=== PATIENT | male | born 1965 | race Caucasian/White ===

== ENCOUNTER 2019-03-25 | Emergency (ER) | payer OTHER | END 2019-03-25 13:28 | disposition home or self-care (01) | DRG 914 | PROC: 0HQGXZZ Repair Left Hand Skin, External Approach (ICD-10-PCS; principal; 2019-03-25) | DX: S67.22XA Crushing injury of left hand, initial encounter (principal); S61.412A Laceration without foreign body of left hand, initial encounter; I10 Essential (primary) hypertension; W23.0XXA Caught, crushed, jammed, or pinched between moving objects, initial encounter ==

== ENCOUNTER 2022-06-21 10:25 | Emergency (ER) | payer MEDICARE ==
[2022-06-21] VITALS (14 sets, daily range): BP systolic 111–169; BP diastolic 60–124
[~2022-06-21] VITALS: Ht 162.6 cm; Wt 100.0 kg
[2022-06-21 11:09] LABS: BASO% 0.3 % (0-3); HEMATOCRIT 39.2 % (39.0-50.0); HEMOGLOBIN 12.3 g/dl (14.0-18.0); IMMATURE GRANULOCYTES 0.2 % (0.0-5.0); LYMPH% 15.2 % (15-41); MEAN CELL VOLUME 82.4 fL CALC (80.0-100.0); MEAN CORPUSCULAR HGB 25.8 pG CALC (26.0-32.0); MEAN CORPUSCULAR HGB CONC 31.4 g/dL CAL (32.0-36.0); MONO% 8.4 % (2-13); NEUT# 6.38 thou/uL (1.82-7.42); NEUT% 71.9 % (42-76); RED BLOOD COUNT 4.76 mill/uL (4.70-6.10); RED CELL DISTRI WIDTH 15.6 % (11.5-15.5)
[2022-06-21 11:34] LABS: ALBUMIN 4.4 g/dL (3.2-5.0); ALKALINE PHOSPHATASE 98 u/l (38-126); ANION GAP 17 (6-22 (CALC)); BILIRUBIN, TOTAL 0.2 mg/dL (0.2-1.3); BUN 17 mg/dL (9-20); BUN/CREATININE RATIO 13 (12-20 (CALC)); CARBON DIOXIDE 20 mmol/l (22-30); CHLORIDE 107 mmol/l (95-108); CREATININE 1.3 mg/dL (0.7-1.3); GFR FOR AFR.AMER. > 60 ML/MIN (>=60 (CALC)); GFR OTHER RACES 57 ML/MIN (>=60 (CALC)); POTASSIUM 4.1 mmol/l (3.5-5.1); SGOT/AST 42 u/l (17-59); SODIUM 140 mmol/l (137-146); TOTAL PROTEIN 7.3 g/dL (6.3-8.2)
[2022-06-21 13:42] LABS: ACT PARTIAL THROMBO TIME 25.6 SECONDS (20.0-32.5); PROTHROMBIN TIME 10.4 SECONDS (9.0-12.5)
== END 2022-06-21 14:35 | disposition short-term general hospital (02) ==
LOC: ED 10:25
PROVIDERS: Family Medicine
PROC: 02HV33Z Insertion of Infusion Device into Superior Vena Cava, Percutaneous Approach (ICD-10-PCS; principal; 2022-06-21)
DX: I21.4 Non-ST elevation (NSTEMI) myocardial infarction (principal); I33.0 Acute and subacute infective endocarditis; I10 Essential (primary) hypertension; E78.00 Pure hypercholesterolemia, unspecified; Z95.1 Presence of aortocoronary bypass graft; Z95.0 Presence of cardiac pacemaker
CPT/HCPCS: J1644; J1650; J2997

== ENCOUNTER 2023-04-15 08:46 | Emergency (ER) | payer MEDICARE ==
[~2023-04-15] VITALS: Ht 162.6 cm; Wt 79.3 kg
[2023-04-15] VITALS (17 sets, daily range): BP systolic 99–130; BP diastolic 59–85
[~2023-04-15 08:46] MED LIST: ALDACTONE25 MG PO; BAYER ASPIRIN E81 MG PO; ELIQUIS5 MG PO; ENTRESTO 49-511 TAB PO; FARXIGA10 MG PO; ISOSORB MONO30 MG PO; LAMICTAL200 M1 PO; LASIX 40 MG TAB40 MG PO; LIPITOR80 M1 PO; PROTONIX40 M2 PO; TRAZODONE HYDR150 MG PO; ZOLOFT50 MG PO
[2023-04-15 09:14] LABS: BASO% 0.4 % (0-3); EOS% 1.5 % (0-8); HEMATOCRIT 34.4 % (39.0-50.0); HEMOGLOBIN 10.7 g/dl (14.0-18.0); IMMATURE GRANULOCYTES 0.8 % (0.0-5.0); LYMPH% 8.6 % (15-41); MEAN CORPUSCULAR HGB 28.3 pG CALC (26.0-32.0); MEAN CORPUSCULAR HGB CONC 31.1 g/dL CAL (32.0-36.0); MONO% 11.1 % (2-13); NEUT# 3.7 thou/uL (1.82-7.42); NEUT% 77.6 % (42-76); RED BLOOD COUNT 3.78 mill/uL (4.70-6.10); RED CELL DISTRI WIDTH 18.8 % (11.5-15.5)
[2023-04-15 09:29] LABS: CREATININE 1.7 mg/dL (0.7-1.3); POTASSIUM 4.2 mmol/l (3.5-5.1); TOTAL PROTEIN 6.6 g/dL (6.3-8.2)
[2023-04-15 09:53] LABS: ALBUMIN 3.7 g/dL (3.2-5.0); BILIRUBIN, TOTAL 0.7 mg/dL (0.2-1.3)
[2023-04-15 10:34] LABS: ACT PARTIAL THROMBO TIME 30.3 SECONDS (20.0-32.5)
[2023-04-15 10:39] LABS: INTERNATIONAL NORMALIZED RATIO 1.3 RATIO (0.7-1.3)
== END 2023-04-15 11:40 | disposition short-term general hospital (02) ==
LOC: ED 08:46
PROVIDERS: Family Medicine
DX: I21.4 Non-ST elevation (NSTEMI) myocardial infarction (principal); I10 Essential (primary) hypertension; Z95.1 Presence of aortocoronary bypass graft; Z95.810 Presence of automatic (implantable) cardiac defibrillator; Z95.2 Presence of prosthetic heart valve; Z79.01 Long term (current) use of anticoagulants
CPT/HCPCS: J1644

== ENCOUNTER 2023-05-10 12:56 | Emergency (ER) | payer MEDICARE ==
[2023-05-10] VITALS (13 sets, daily range): BP systolic 97–135; BP diastolic 50–82
[~2023-05-10] VITALS: Ht 162.6 cm; Wt 77.7 kg
[~2023-05-10 12:56] MED LIST changes: +diazePAM 10 MG/2 ML VIAL IV ONE
[2023-05-10] MEDS ORDERED: diazePAM 10 MG/2 ML VIAL IV ONE (13:10)
[2023-05-10 13:21] LABS: BASO% 0.2 % (0-3); EOS% 0.6 % (0-8); HEMATOCRIT 33.3 % (39.0-50.0); HEMOGLOBIN 10.6 g/dl (14.0-18.0); IMMATURE GRANULOCYTES 1.3 % (0.0-5.0); LYMPH% 14.3 % (15-41); MEAN CELL VOLUME 87.4 fL CALC (80.0-100.0); MEAN CORPUSCULAR HGB 27.8 pG CALC (26.0-32.0); MEAN CORPUSCULAR HGB CONC 31.8 g/dL CAL (32.0-36.0); NEUT# 10.55 thou/uL (1.82-7.42); NEUT% 76.6 % (42-76); RED BLOOD COUNT 3.81 mill/uL (4.70-6.10); RED CELL DISTRI WIDTH 17.2 % (11.5-15.5)
[2023-05-10 13:47] LABS: INTERNATIONAL NORMALIZED RATIO 1.2 RATIO (0.7-1.3); PROTHROMBIN TIME 11.2 SECONDS (9.0-12.5)
[2023-05-10 14:05] LABS: ALBUMIN 3.5 g/dL (3.2-5.0); CHOLESTEROL HDL RATIO 3.2 (<4.4 (CALC)); CREATININE 1.7 mg/dL (0.7-1.3); POTASSIUM 4.2 mmol/l (3.5-5.1); TOTAL PROTEIN 6.7 g/dL (6.3-8.2)
[2023-05-10 14:10] LABS: BILIRUBIN, TOTAL 0.4 mg/dL (0.2-1.3)
[2023-05-10] MEDS ORDERED: SODIUM CHLORIDE 0.9% 1,000 ML IV ONE (14:10)
[2023-05-10] MEDS ORDERED: CLOPIDOGREL75 MG PO (14:25)
[2023-05-10] MEDS ORDERED: ENTRESTO 24-261 TAB (14:29)
[2023-05-10] MEDS ORDERED: CVS FLUTICASON50 MC1 (14:32)
[2023-05-10] MEDS ORDERED: DEMADEX20 MG PO (14:34)
[2023-05-10] MEDS ORDERED: CONGESTI PO (14:34)
[2023-05-10] MEDS ORDERED: COMBIVENT RESPIMAT IN (14:35)
[2023-05-10] MEDS ORDERED: ALBUTEROL SUL0.083 % IN (14:37)
[2023-05-10] MEDS ORDERED: YUPELRI175 MCG/3 (14:38)
[2023-05-10] MEDS ORDERED: BENZONATATE150 MG PO (14:39)
[2023-05-10] MEDS ORDERED: COLCHICINE0.6 M2 PO (14:41)
[2023-05-10] MEDS ORDERED: DULERA1 AE1 IN (14:42)
[2023-05-10] MEDS ORDERED: HYDROCO/APAP1 TA9 PO (14:43)
[2023-05-10] MEDS ORDERED: LATUDA40 MG PO (14:44)
[2023-05-10] MEDS ORDERED: TOPROL XL25 M1 PO (14:45)
[2023-05-10] MEDS ORDERED: KLOR-CON M2020 MEQ PO (14:46)
[2023-05-10] MEDS ORDERED: NITROGLYCERIN0.4 MG (14:46)
[2023-05-10] MEDS ORDERED: TRAZODONE HYDR150 MG PO (14:50)
[2023-05-10] MEDS ORDERED: PROTHROMBIN COMPLEX CONCENTRAT 500 IU/VIAL VIAL IV ONE (15:25)
[2023-05-10] MEDS ORDERED: PROTHROMBIN COMPLEX CONCENTRAT 500 IU/VIAL VIAL IV SCH ×2 (15:25)
== END 2023-05-10 17:00 | disposition short-term general hospital (02) ==
LOC: ED 12:56
PROVIDERS: Emergency Medicine
DX: I62.9 Nontraumatic intracranial hemorrhage, unspecified (principal); R29.700 NIHSS score 0; I11.0 Hypertensive heart disease with heart failure; I50.9 Heart failure, unspecified; N28.9 Disorder of kidney and ureter, unspecified; E78.5 Hyperlipidemia, unspecified; I42.9 Cardiomyopathy, unspecified; F31.9 Bipolar disorder, unspecified; I48.91 Unspecified atrial fibrillation; I25.10 Atherosclerotic heart disease of native coronary artery without angina pectoris; F17.210 Nicotine dependence, cigarettes, uncomplicated; Z95.0 Presence of cardiac pacemaker; Z95.1 Presence of aortocoronary bypass graft; Z79.01 Long term (current) use of anticoagulants; Z79.02 Long term (current) use of antithrombotics/antiplatelets